=== PATIENT | male | born 1945 | race Caucasian/White ===

== ENCOUNTER → 2017-07-04 | Outpatient (REF) ==
[2017-07-04 21:48] LABS: PSA-TOTAL 1.46 ng/mL (0-4); THYROID STIMULATING HORMONE 2.57 uIU/mL (0.465-4.680)
== END ==
LOC: ZLAB.WCH 20:55
PROVIDERS: Internal Medicine
DX: Z01.89 Encounter for other specified special examinations (principal)
CPT/HCPCS: G0103

== ENCOUNTER → 2018-11-26 | Outpatient (REF) | LOC: ZLAB.WCH 18:42 | DX: Z01.89 Encounter for other specified special examinations (principal) | CPT/HCPCS: G0103 ==